=== PATIENT | male | born 1995 | race Caucasian/White ===

== ENCOUNTER 2018-10-18 10:22 | Emergency (ER) | payer OTHER ==
[~2018-10-18] VITALS: Ht 177.8 cm; Wt 77.1 kg
[2018-10-18] MEDS ORDERED: QUET200T PO (10:31)
--- NOTE | 2018-10-18 10:58 | NUR ---
Patient discharged to home in stable conditon & brisk steady gait. Written and verbal after care instructions given to patient. Patient verbalizes understanding of instructions.
== END 2018-10-18 10:58 | disposition home or self-care (01) ==
LOC: ER 10:24
DX: K46.9 Unspecified abdominal hernia without obstruction or gangrene (principal); R21 Rash and other nonspecific skin eruption; Z79.899 Other long term (current) drug therapy
CPT/HCPCS: A4663